=== PATIENT | female | born 2000 | race Caucasian/White ===

== ENCOUNTER 2020-05-25 14:30 | Emergency (ER) | payer SELFPAY ==
[~2020-05-25] VITALS: Ht 157.5 cm; Wt 97.0 kg
[2020-05-25 15:26] VITALS: BP 125/72
[2020-05-25] MEDS ORDERED: METH4TAB2 PO (15:38)
[2020-05-25] MEDS ORDERED: DIPH25TA64 PO (15:38)
[2020-05-25] MEDS ORDERED: FAMO-63 PO (15:38)
--- NOTE | 2020-05-25 15:39 | PHYS DOC ---
General Adult EDM: Chief Complaint: SKIN RASH/ABSCESS HPI: HPI: Patient is a 19 year old female who presents with states a couple days ago she used a new fabric softener and began having hives to her abdomen and her arms chest and back. She states she is very itchy. She states she has not taken any medication to help with her symptoms. Patient denies shortness of breath, throat itching, mouth swelling, tongue swelling, throat swelling, wheezing, chest pain, chest pressure, abdominal pain, nausea, vomiting, diarrhea, fever. Denies pain. Review of Systems: Review of Systems: Constitutional: Denies fever or chills. [] Eyes: Denies change in visual acuity. [] HENT: Denies nasal congestion or sore throat. [] Respiratory: Denies cough or shortness of breath. [] Cardiovascular: Denies chest pain or edema. [] GI: Denies abdominal pain, nausea, vomiting, bloody stools or diarrhea. [] : Denies dysuria. [] Musculoskeletal: Denies back pain or joint pain. [] Integument: + Hives rash. [] Neurologic: Denies headache, focal weakness or sensory changes. [] Endocrine: Denies polyuria or polydipsia. [] Lymphatic: Denies swollen glands. [] Psychiatric: Denies depression or anxiety. [] Heart Score: C/O Chest Pain: N/A Risk Factors: Risk Factors: DM, Current or recent (<one month) smoker, HTN, HLP, family history of CAD, obesity. Risk Scores: Score 0 - 3: 2.5% MACE over next 6 weeks - Discharge Home Score 4 - 6: 20.3% MACE over next 6 weeks - Admit for Clinical Observation Score 7 - 10: 72.7% MACE over next 6 weeks - Early Invasive Strategies Physical Exam: PE: Constitutional: Well developed, well nourished, no acute distress, non-toxic appearance. [] HENT: Normocephalic, atraumatic, bilateral external ears normal, oropharynx moist, no oral exudates, nose normal. [] Eyes: PERRLA, EOMI, conjunctiva normal, no discharge. [] Neck: Normal range of motion, no tenderness, supple, no stridor. [] Cardiovascular:Heart rate regular rhythm, no murmur [] Lungs & Thorax: Bilateral breath sounds clear to auscultation [] Abdomen: Bowel sounds normal, soft, no tenderness, no masses, no pulsatile masses. [] Skin: Warm, dry, no erythema, generalized hives rash. [] Back: No tenderness, no CVA tenderness. [] Extremities: No tenderness, no cyanosis, no clubbing, ROM intact, no edema. [] Neurologic: Alert and oriented X 3, normal motor function, normal sensory function, no focal deficits noted. [] Psychologic: Affect normal, judgement normal, mood normal. [] Current Patient Data: Vital Signs: Vital Signs Date Time Temp Pulse Resp B/P (MAP) Pulse Ox O2 Delivery O2 Flow Rate FiO2 05/25/20 14:55 98.1 64 18 125/72 (89) 98 Room Air 98.1 EKG: EKG: [] Radiology/Procedures: Radiology/Procedures: [] Course & Med Decision Making: Course & Med Decision Making Pertinent Labs and Imaging studies reviewed. (See chart for details) See HPI. Patient has hives on her abdomen, chest, back, arms and some on her legs. No hives or rash to the face or in the mouth. Uvula midline and there is no swelling to the throat or the tongue or the lips. Speaks in full clear sentences. Alert and oriented x4. Ambulatory with steady gait. Skin pink warm and dry. Vital signs within normal limits. Patient is in no respiratory distress. Lungs are clear to auscultation all lobes. Patient is given dexamethasone, Pepcid, Benadryl here in the ED. [] Dragon Disclaimer: Elana Disclaimer: This electronic medical record was generated, in whole or in part, using a voice recognition dictation system. Departure Departure Impression: Primary Impression: Hives Disposition: 01 DC HOME SELF CARE/HOMELESS Condition: STABLE Referrals: NO PCP (PCP) Patient Instructions: Hives Additional Instructions: Return if worsening or if your face starts to swell or you have trouble breathing. Call 911. Only use EpiPen if your throat is closing up and you cannot breathe. You must come to the ER if you used EpiPen. Drink Plenty of fluids. Remember medications will make you sleepy. Scripts Diphenhydramine Hcl (BENADRYL ALLERGY) 25 Mg Tablet 1 TAB PO Q6HRS for 5 Days, #20 TAB 0 Refills Prov: TEMO KELSEY APRN 05/25/20 Famotidine (PEPCID) 20 Mg Tablet 20 MG PO BID, #10 TAB Prov: TEMO KELSEY APRN 05/25/20 Methylprednisolone (MEDROL) 4 Mg Tab.ds.pk 1 PKG PO UD, #1 PKG Prov: TEMO KELSEY APRN 05/25/20 TEMO KELSEY APRN May 25, 2020 15:39
[2020-05-25] MEDS ORDERED: FAMOTIDINE 20 MG TABLET. PO ONE (15:45)
[2020-05-25] MEDS ORDERED: DEXAMETHASONE 4 MG TABLET PO ONE (15:45)
[2020-05-25] MEDS ORDERED: diphenhydrAMINE HCL 25 MG CAPSULE PO ONE (15:45)
== END 2020-05-25 15:57 | disposition home or self-care (01) ==
LOC: ER 14:30
DX: L50.8 Other urticaria (principal)
CPT/HCPCS: 99284; Q0163